=== PATIENT | male | born 1985 | race Caucasian/White ===

== ENCOUNTER 2019-12-29 10:04 | Emergency (ER) | payer OTHER ==
[~2019-12-29] VITALS: Ht 167.6 cm; Wt 65.8 kg
[2019-12-29 10:57] LABS: URINE BILIRUBIN NEGATIVE (Negative); URINE BLOOD TRACE (Negative); URINE CLARITY CLEAR; URINE COLOR YELLOW; URINE GLUCOSE-RANDOM NEGATIVE (Negative); URINE KETONES NEGATIVE (Negative); URINE LEUKOCYTES-REFLEX NEGATIVE (Negative); URINE NITRITE-REFLEX NEGATIVE (Negative); URINE PROTEIN NEGATIVE (Negative); URINE UROBILINOGEN 0.2 E.U./dl (0.2-1.0)
[2019-12-29] MEDS ORDERED: DOXYCYCLINE 10100 MG PO (11:12)
[2019-12-29 11:47] VITALS: BP 126/87
== END 2019-12-29 11:48 | disposition home or self-care (01) ==
LOC: M.ERS 10:04
PROVIDERS: Personal Emergency Response Attendant
DX: N39.0 Urinary tract infection, site not specified (principal); R42 Dizziness and giddiness; R30.0 Dysuria; F12.10 Cannabis abuse, uncomplicated

== ENCOUNTER 2019-12-31 13:06 | Emergency (ER) | payer OTHER ==
[~2019-12-31] VITALS: Ht 167.6 cm; Wt 65.8 kg
[~2019-12-31 13:06] MED LIST: DOXYCYCLINE 10100 MG PO
[2019-12-31 14:01] LABS: ABSOLUTE EOSINOPHILS 0.1 thou/uL (0.0-0.7); ABSOLUTE LYMPHOCYTES 1.7 thou/uL (0.8-5.3); ABSOLUTE MONOCYTES 0.7 thou/uL (0.0-1.2); ABSOLUTE NEUTROPHILS 3.9 thou/uL (1.6-8.1); BASOPHILS 0.7 %; EOSINOPHILS 1.5 %; HEMATOCRIT 48.3 % (42.0-52.0); HEMOGLOBIN 16.2 gm/dL (14.0-18.0); LYMPHOCYTES 25.9 %; MCH 30.8 pg (26.0-34.0); MCHC 33.6 g/dL (28.0-37.0); MCV 91.7 fL (80.0-100.0); MONOCYTES 10.6 %; MPV 9.1 fl. (7.2-11.1); NUCLEATED RBCS 0 /100WBC; PLATELET COUNT* 267 thou/uL (150-400); POLYS 61.3 %; RBC 5.26 mil/uL (4.50-6.00); RDW-CV 13.7 % (10.5-14.5); WBC 6.4 thou/uL (4.0-11.0)
[2019-12-31 14:11] LABS: CALCIUM 8.3 mg/dL (8.5-10.1); CREATININE 0.9 mg/dL (0.6-1.3); POTASSIUM 3.8 mmol/L (3.5-5.1)
[2019-12-31 14:22] LABS: ALBUMIN 4.1 g/dL (3.4-5.0); TOTAL BILIRUBIN 0.4 mg/dL (<0.1-1.0); TOTAL PROTEIN 8.4 g/dL (6.4-8.2)
[2019-12-31 14:53] LABS: URINE BILIRUBIN NEGATIVE (Negative); URINE BLOOD NEGATIVE (Negative); URINE CLARITY CLEAR; URINE COLOR YELLOW; URINE GLUCOSE-RANDOM NEGATIVE (Negative); URINE KETONES NEGATIVE (Negative); URINE LEUKOCYTES-REFLEX NEGATIVE (Negative); URINE NITRITE-REFLEX NEGATIVE (Negative); URINE PROTEIN NEGATIVE (Negative); URINE UROBILINOGEN 0.2 E.U./dl (0.2-1.0)
[2019-12-31] MEDS ORDERED: ONDANSETRON HCL4 M2 PO (16:32)
[2019-12-31] MEDS ORDERED: BENTYL 20 MG TA20 M1 PO (16:32)
[2019-12-31 16:59] VITALS: BP 128/82
--- NOTE | 2020-01-01 17:02 | EKG ---
[place] [address] ELECTROCARDIOGRAM REPORT Name: GERARD HILLS Room: [facility]#: [id number] Admission: 12/31/19 Attend Phys: Discharge: 12/31/19 Date of : 85 Date of Service: 12/31/19 1400 Report #: [id number] THIS REPORT FOR: //name// [facility] ED Test Date: 2019-12-31 Test Time: 14:00:51 Pat Name: GERARD HILLS Department: Room: Gender: [employer]: [facility] : 1985 Requested By: Tatiana Esparza Order Number: [id number] MD: Robi Nathan Measurements Intervals [place] Rate: 59 P: 71 ND: 131 QRS: 71 QRSD: 84 T: 47 QT: 404 QTc: 401 Interpretive Statements Sinus rhythm ST elevation suggests early repolarization Baseline wander in lead(s) V6 No previous ECG available for comparison Electronically Signed On 01-01-2020 17:00:48 CDT by Robi Nathan [email or web address] <ELECTRONICALLY SIGNED> By: Robi Nathan MD, [facility] 01/01/20 1700 1400 99 Robi Nathan MD, FAC /EPI
== END 2019-12-31 17:00 | disposition home or self-care (01) ==
LOC: M.ERS 13:06
PROVIDERS: Nurse Practitioner Family
DX: T67.5XXA Heat exhaustion, unspecified, initial encounter (principal); R42 Dizziness and giddiness; R10.31 Right lower quadrant pain; X30.XXXA Exposure to excessive natural heat, initial encounter; Y93.89 Activity, other specified; Y92.89 Other specified places as the place of occurrence of the external cause; Y99.8 Other external cause status